=== PATIENT | male | born 1955 | race Two or more races ===

== ENCOUNTER 2020-10-11 13:13 | Emergency (ER) | payer OTHER ==
[2020-10-11 13:22] VITALS: PULSE 99; TEMP 98.6
--- NOTE | 2020-10-11 14:04 | ED ---
General Adult HPI - General Chief complaint: Shortness of Breath Stated complaint: Possible Pnuemonia, sent from [facility] Time Seen by Provider: 10/11/20 13:15 Source: patient, family, RN notes reviewed, old records reviewed Mode of arrival: ambulatory Limitations: no limitations - History of Present Illness Initial comments: This a 65-year-old male who presents emergency department after having been [facility]. Patient was there because of a problem on the plantar surface of the left foot he states there was some pain in the last 3 or 4 days and he states in the morning is worse when he wakes up and then as he walks on it it gets better. Patient states while he was at [facility] they noticed his oxygenation was a little low so they sent him in for possible pneumonia. Patient denies any significant cough per patient or shortness of breath. Patient denies any chest pain patient denies any fever or chills. Patient states he is really here because of his plantar surface pain on his left foot. Patient states he has started wearing a pair of boots that her ascites and a half to breathing form that his son gave him and his been wearing those for about a month and now is developed this pain in that foot. Patient states is no redness or swelling there is no injury. Patient states she's on his feet all day. - Related Data Previous Rx's Medication Instructions Recorded Azithromycin [Zithromax Tri-Karthikeyan] 500 mg PO DAILY #3 tab 10/11/20 Ibuprofen [Motrin] 600 mg PO Q6HR PRN #20 tab 10/11/20 Allergies Allergy/AdvReac Type Severity Reaction Status Date / Time No Known Allergies Allergy Verified 10/11/20 13:22 Review of Systems ROS Statement: Those systems with pertinent positive or pertinent negative responses have been documented in the HPI. ROS Other: All systems not noted in ROS Statement are negative. Past Medical History Past Medical History: Diabetes Mellitus, Hypertension History of Any Multi-Drug Resistant Organisms: None Reported Past Surgical History: No Surgical Hx Reported Past Psychological History: No Psychological Hx Reported Smoking Status: Never smoker Past Alcohol Use History: None Reported Past Drug Use History: None Reported General Exam - General Exam Comments Initial Comments: GENERAL: Patient is well-developed and well-nourished. Patient is nontoxic and well- hydrated and is in no acute distress. ENT: Neck is soft and supple. No significant lymphadenopathy is noted. Oropharynx is clear. Moist mucous membranes. Neck has full range of motion without eliciting any pain. EYES: The sclera were anicteric and conjunctiva were pink and moist. Extraocular movements were intact and pupils were equal round and reactive to light. Eyelids were unremarkable. PULMONARY: Unlabored respirations. Good breath sounds bilaterally. No audible rales rhonchi or wheezing was noted. CARDIOVASCULAR: There is a regular rate and rhythm without any murmurs gallops or rubs. ABDOMEN: Soft and nontender with normal bowel sounds. No palpable organomegaly was noted. There is no palpable pulsatile mass. SKIN: Skin is clear with no lesions or rashes and otherwise unremarkable. NEUROLOGIC: Patient is alert and oriented x3. Cranial nerves II through XII are grossly intact. Motor and sensory are also intact. Normal speech, volume and content. Symmetrical smile. MUSCULOSKELETAL: Normal extremities with adequate strength and full range of motion. The plantar surface of the left foot in the very center of the foot has some tenderness to palpation however there is no redness or swelling. LYMPHATICS: No significant lymphadenopathy is noted PSYCHIATRIC: Normal psychiatric evaluation. Normal interpersonal interactions appears functionally intact in deals appropriately with others. No signs of depression. No signs of anxiety. No delusions. No hallucinations. Limitations: no limitations Course Vital Signs 10/11/20 10/11/20 13:16 14:44 Temperature 98.6 F Pulse Rate 99 99 Respiratory 20 18 Rate Blood Pressure 146/88 123/81 O2 Sat by Pulse 96 96 Oximetry Medical Decision Making - Medical Decision Making I spoke with the gentleman about wearing the wrong size shoes and the fact that they are to that she was no longer in the right spot because they don't fit him correctly he was in agreement with this could possibly be the problem. X-ray of the foot shows a plantar spur no other acute abnormalities noted. Chest x-ray shows possible infiltrate on the right. Also his left elevated diaphragm. Patient has been informed that there could be an aortic and has been he needs to follow-up with his primary medical care doctor for further studies. Patient will be treated with Rocephin emergency department as well as a to go home with. Zithromax go home with Disposition Clinical Impression: Plantar fasciitis, Pneumonia Disposition: HOME SELF-CARE Condition: Good Instructions (If sedation given, give patient instructions): Plantar Fasciitis (ED), Community Acquired Pneumonia (ED) Additional Instructions: Patient should follow-up with primary medical care doctor to make sure what appears to be pneumonia he is cleared up also to evaluate him for possible aortic aneurysm. Patient should not wear his son boots and consider getting inserts for his boots. Patient should take Motrin 3 times a day for the plantar fasciitis. Prescriptions: Ibuprofen [Motrin] 600 mg PO Q6HR PRN #20 tab PRN Reason: For pain Azithromycin [Zithromax Tri-Karthikeyan] 500 mg PO DAILY #3 tab Is patient prescribed a controlled substance at d/c from ED?: No Referrals: Nonstaff,Physician [Primary Care Provider] - 1-2 days Time of Disposition: 14:54
[2020-10-11 14:45] VITALS: BP 123/81; RESP 18
--- NOTE | 2020-10-11 14:45 | XR ---
Left foot HISTORY: Pain on plantar surface of foot, swelling 3 views of the left foot Bone mineralization, joint spaces and alignment are maintained. There is a plantar calcaneal spur. No fracture or dislocation. IMPRESSION: Plantar spur
--- NOTE | 2020-10-11 14:46 | XR ---
EXAMINATION TYPE: XR chest 2V DATE OF EXAM: 10/11/2020 COMPARISON: NONE HISTORY: Difficulty breathing TECHNIQUE: Frontal and lateral views of the chest are obtained. FINDINGS: Platelike areas of increased attenuation present at the left lung base, there is elevation of left hemidiaphragm. Aorta is dilated and shows increased density. Patchy density present in the r ight lung. There is no evident pneumothorax. Heart may be enlarged and is partially obscured. Patient is rotated. IMPRESSION: Possible cardiomegaly, aortic aneurysm, correlate for pneumonia, basilar atelectasis. In determinate elevation of left hemidiaphragm, consider alternate imaging.
[2020-10-11] MEDS ORDERED: cefTRIAXone 1,000 MG VIAL (IM USE) IM STA (14:52)
== END 2020-10-11 15:15 | disposition home or self-care (01) ==
LOC: EC 13:13
DX: M72.2 Plantar fascial fibromatosis (principal); J18.9 Pneumonia, unspecified organism; I10 Essential (primary) hypertension; E11.9 Type 2 diabetes mellitus without complications
CPT/HCPCS: 73630; 71046; 99283; 96372; J0696

== ENCOUNTER → 2025-02-06 | Outpatient (CLI) | payer MEDICARE ==
--- NOTE | 2025-02-06 14:06 | MR ---
EXAMINATION TYPE: MR Prostate wo/w con DATE OF EXAM: 02/06/2025 12:25 PM COMPARISON: None. CLINICAL INDICATION: Male, 69 years old with history of R97.20 ELEVATED PSA; Elevated PSA. TECHNIQUE: Multi-planar, multi-sequence imaging of the pelvis is performed prior to and following the uncomplicated administration of bolus intravenous gadolinium. IV Contrast: 11 mL Gadobutrol Interpretive Criteria: PI-RADS v2.1 SERUM PSA: 11-04-24 = 6.12 10-03-03 = 5.76 SURGICAL PATHOLOGY: No data available. FINDINGS: Prostatic dimensions: 5.7 x 6.2 x 4.4 cm. Ellipsoid Volume:81.42 (PSA density=0.08 ng/mL/mL) CENTRAL GLAND (Central and Transition Zones/CZ+TZ): Multiple bilateral, heterogenous appearing hypertrophic stromal nodules, without suspicious lesion. F ocus of higher DWI signal anterior right mid gland is thought to be in a BPH nodule. This is seen on one slice only and on diffusion-weighted imaging. Median lobe hypertrophy with protrusion into the ba se of the bladder. (PI-RADS 2) PERIPHERAL ZONE (PZ): Bilateral linear, indistinct wedgelike areas of low ADC, and low T2 signal, No evidence of masslike a bnormality, or localized perfusional hypervascularity, to further suggest a focus of clinically signi ficant prostate cancer. (PI-RADS 2) SEMINAL VESICLES (SV): Symmetric and unremarkable. PERIPROSTATIC TISSUES: Unremarkable. LYMPH NODES: No enlarged pelvic lymph node. REMAINING PELVIS: Bladder wall is within normal limits given distention. No abnormal free or organized intrapelvic fluid collection. No pathologic bowel dilation or mural thickening. No hernia visualized OSSEOUS STRUCTURES: No suspicious osseous abnormality. IMPRESSION: 1. No specific features for high-risk prostate cancer. Maximum PI-RADS score: 2. 2. Substantial BPH, estimated gland volume 81.42 (PSA density=0.08 ng/mL/mL) 3. No suspicious osseous lesion. No lymphadenopathy. No evidence of prostate adenocarcinoma involving the periprostatic tissues. [facility], , 02/06/2025 2:03 PM
== END | disposition home or self-care (01) ==
LOC: RADMRIMAIN 10:36
PROVIDERS: ATTEND Urology
DX: N40.0 Benign prostatic hyperplasia without lower urinary tract symptoms (principal); R97.20 Elevated prostate specific antigen [PSA]
CPT/HCPCS: 72197; A9585